=== PATIENT | female | born 1985 | race Caucasian/White ===

== ENCOUNTER 2017-02-07 22:40 | Emergency (ER) | payer MEDICAID ==
[~2017-02-07] VITALS: Ht 160 cm; Wt 49.8 kg
[2017-02-07] MEDS ORDERED: HYDROcodone/APAP 5/325 TABLET ONE (22:57)
[2017-02-07] MEDS ORDERED: HYDROcodone/APAP 5/325 TABLET PO ONE (23:00)
[2017-02-08 00:15] VITALS: BP 125/89
== END 2017-02-08 00:32 | disposition home or self-care (01) ==
LOC: ED 23:59
DX: S60.221A Contusion of right hand, initial encounter (principal); S60.031A Contusion of right middle finger without damage to nail, initial encounter; S60.041A Contusion of right ring finger without damage to nail, initial encounter; S60.051A Contusion of right little finger without damage to nail, initial encounter; W22.8XXA Striking against or struck by other objects, initial encounter; Y93.89 Activity, other specified; Y99.8 Other external cause status; Y92.009 Unspecified place in unspecified non-institutional (private) residence as the place of occurrence of the external cause
CPT/HCPCS: 99284

== ENCOUNTER 2017-08-15 12:43 | Emergency (ER) | payer MEDICAID ==
[~2017-08-15] VITALS: Ht 160 cm; Wt 52.0 kg
[2017-08-15] MEDS ORDERED: FAMOTIDINE 20 MG/2 ML IVPush ONE (13:30)
[2017-08-15] MEDS ORDERED: DEXAMETHASONE 4 MG/ML, 1ML IVPush ONE (13:30)
[2017-08-15] MEDS ORDERED: FAMOTIDINE 20 MG/2 ML ONE (13:37)
[2017-08-15] MEDS ORDERED: DEXAMETHASONE 4 MG/ML, 5ML ONE (13:37)
[2017-08-15 13:47] VITALS: BP 115/86
== END 2017-08-15 15:08 | disposition home or self-care (01) ==
LOC: ED 14:45
DX: L50.9 Urticaria, unspecified (principal); T78.1XXA Other adverse food reactions, not elsewhere classified, initial encounter; X58.XXXA Exposure to other specified factors, initial encounter
CPT/HCPCS: 96374; 96375; 99284; J1100; S0028

== ENCOUNTER 2018-05-27 01:57 | Inpatient (IN) | payer MEDICAID, OTHER ==
[~2018-05-27] VITALS: Ht 160 cm; Wt 61.3 kg
[2018-05-27 02:27] LABS: HCG UR SG 1.023 (1.003-1.030)
[2018-05-27 02:29] LABS: CULTURE INDICATED? YES; MICROSCOPIC INDICATED
[2018-05-27 02:50] LABS: BASOPHILS # (AUTO) 0.01 x10^3/uL (0-0.1); BASOPHILS % (AUTO) 0 % (0-1); EOSINOPHILS # (AUTO) 0.01 x10^3/uL (0-0.4); EOSINOPHILS % (AUTO) 0 % (1-7); LYMPHOCYTES # (AUTO) 0.97 x10^3/uL (1-3.4); LYMPHOCYTES % (AUTO) 7 % (22-44); MD NO; MEAN CORPUSCULAR HEMOGLOBIN 32.5 pg (27.0-34.8); MEAN CORPUSCULAR HGB CONC 34.5 g/dL (32.4-35.8); MEAN CORPUSCULAR VOLUME 94.1 fL (80-100); MEAN PLATELET VOLUME 9.6 fL (7.4-10.4); MONOCYTES # (AUTO) 1.31 x10^3/uL (0.2-0.8); MONOCYTES % (AUTO) 9 % (2-9); NEUTROPHILS # (AUTO) 11.69 x10^3/uL (1.8-6.8); NEUTROPHILS % (AUTO) 84 % (42-75); PLATELET COUNT 171 x10^3/uL (130-400); RED BLOOD COUNT 4.49 x10^6/uL (3.82-5.3); RED CELL DISTRIBUTION WIDTH 13.4 % (9.6-15.2)
[2018-05-27 03:01] LABS: ALANINE AMINOTRANSFERASE 24 U/L (12-78); ALBUMIN 3.1 g/dL (3.4-5.0); ANION GAP 11 mmol/L (5-15); CALCIUM 8.9 mg/dL (8.5-10.1); CHLORIDE 102 mmol/L (98-107); CREATININE 0.83 mg/dL (0.55-1.02)
[2018-05-27 03:04] LABS: ALKALINE PHOSPHATASE 68 U/L (45-117); TOTAL PROTEIN 7.9 g/dL (6.4-8.2)
[2018-05-27] MEDS ORDERED: CEFTRIAXONE PMX 1GM/50ML 50 ML ONE (03:19)
[2018-05-27] MEDS ORDERED: SODIUM CHLORIDE FLUSH 10ML SYR IVF ONE (03:30)
[2018-05-27] MEDS ORDERED: ONDANSETRON ODT 4 MG ONE (03:30)
[2018-05-27] MEDS ORDERED: SODIUM CHLORIDE 0.9% 1,000ML IVBOLUS ONE ×2 (03:30→04:30)
[2018-05-27] MEDS ORDERED: CEFTRIAXONE 1,000 MG in SODIUM CHLORIDE 0.9% 50 ML IV ONE (03:30)
[2018-05-27] MEDS ORDERED: ONDANSETRON ODT 4 MG PO ONE (04:00)
[2018-05-27] MEDS ORDERED: ACETAMINOPHEN 500 MG TABLET ONE (04:07)
[2018-05-27] MEDS ORDERED: KETOROLAC 30 MG/1 ML ONE (04:07)
[2018-05-27] MEDS: CEFTRIAXONE 1,000 MG in SODIUM CHLORIDE 0.9% 50 ML IV SCH (04:27)
[2018-05-27] MEDS ORDERED: morphine SULFATE 10 MG/ML, 1ML IVPush PRN (04:30)
[2018-05-27] MEDS ORDERED: ACETAMINOPHEN 500 MG TABLET PO ONE (04:30)
[2018-05-27] MEDS ORDERED: KETOROLAC 30 MG/1 ML IVPush ONE (04:30)
[2018-05-27] MEDS ORDERED: ONDANSETRON 2MG/ML, 2ML IVPush PRN (04:30)
[2018-05-27] MEDS ORDERED: ZOLPIDEM 5MG TABLET PO PRN (04:30)
[2018-05-27] MEDS ORDERED: PROMETHAZINE 25 MG/ML, 1ML IM PRN (04:30)
[2018-05-27] MEDS ORDERED: ENOXAPARIN 40 MG/0.4 ML ONE (04:36)
[2018-05-27] MEDS: SODIUM CHLORIDE 0.9% 1,000 ML IV SCH ×2 (04:41→13:38)
[2018-05-27] MEDS: ENOXAPARIN 40 MG/0.4 ML SQ SCH (04:41)
[2018-05-27 05:18] VITALS: BP 100/69
[2018-05-27 07:08] VITALS: BP 92/60
[2018-05-27 13:01] VITALS: BP 100/62
[2018-05-27] MEDS: ONDANSETRON ODT 4 MG PO PRN (15:27)
[2018-05-27] MEDS: KETOROLAC 30 MG/1 ML IV PRN (15:27)
[2018-05-27 20:00] VITALS: BP 89/55
[2018-05-28 00:02] VITALS: BP 106/71
[2018-05-28] MEDS: ACETAMINOPHEN 325 MG TABLET PO PRN ×2 (00:08→14:09)
[2018-05-28] MEDS: SODIUM CHLORIDE 0.9% 1,000 ML IV SCH ×3 (00:08→21:33)
[2018-05-28] MEDS: ONDANSETRON ODT 4 MG PO PRN ×3 (00:09→22:28)
[2018-05-28] MEDS: KETOROLAC 30 MG/1 ML IV PRN ×3 (00:09→22:28)
[2018-05-28] MEDS: ENOXAPARIN 40 MG/0.4 ML SQ SCH (04:30)
[2018-05-28] MEDS: CEFTRIAXONE 1,000 MG in SODIUM CHLORIDE 0.9% 50 ML IV SCH (04:53)
[2018-05-28 05:13] LABS: BASOPHILS # (AUTO) 0.03 x10^3/uL (0-0.1); BASOPHILS % (AUTO) 0 % (0-1); EOSINOPHILS # (AUTO) 0.01 x10^3/uL (0-0.4); EOSINOPHILS % (AUTO) 0 % (1-7); LYMPHOCYTES # (AUTO) 1.65 x10^3/uL (1-3.4); LYMPHOCYTES % (AUTO) 20 % (22-44); MD NO; MEAN CORPUSCULAR HEMOGLOBIN 32.3 pg (27.0-34.8); MEAN CORPUSCULAR HGB CONC 34.1 g/dL (32.4-35.8); MEAN CORPUSCULAR VOLUME 94.7 fL (80-100); MEAN PLATELET VOLUME 10.2 fL (7.4-10.4); MONOCYTES # (AUTO) 1.12 x10^3/uL (0.2-0.8); MONOCYTES % (AUTO) 14 % (2-9); NEUTROPHILS # (AUTO) 5.28 x10^3/uL (1.8-6.8); NEUTROPHILS % (AUTO) 65 % (42-75); PLATELET COUNT 147 x10^3/uL (130-400); RED BLOOD COUNT 3.55 x10^6/uL (3.82-5.3); RED CELL DISTRIBUTION WIDTH 13.4 % (9.6-15.2)
[2018-05-28 05:22] LABS: ANION GAP 7 mmol/L (5-15); CALCIUM 7.4 mg/dL (8.5-10.1); CHLORIDE 113 mmol/L (98-107); CREATININE 0.65 mg/dL (0.55-1.02)
[2018-05-28 07:06] VITALS: BP 94/64
[2018-05-28] MEDS ORDERED: OMNIPAQUE 350 MG/ML, 100ML BOTTLE ONE (08:21)
[2018-05-28 12:19] VITALS: BP_SYST 95; BP_SYST 96; BP_DIAS 60; BP_DIAS 62
[2018-05-28 19:00] VITALS: BP 94/61
[2018-05-29 01:59] VITALS: BP 93/62
[2018-05-29] MEDS: CEFTRIAXONE PMX 1GM/50ML 50 ML IV SCH (04:14)
[2018-05-29] MEDS: SODIUM CHLORIDE 0.9% 1,000 ML IV SCH ×2 (04:14→10:59)
[2018-05-29] MEDS: ENOXAPARIN 40 MG/0.4 ML SQ SCH (04:15)
[2018-05-29 04:56] LABS: BASOPHILS # (AUTO) 0.02 x10^3/uL (0-0.1); BASOPHILS % (AUTO) 0 % (0-1); EOSINOPHILS # (AUTO) 0.02 x10^3/uL (0-0.4); EOSINOPHILS % (AUTO) 0 % (1-7); LYMPHOCYTES # (AUTO) 2.08 x10^3/uL (1-3.4); LYMPHOCYTES % (AUTO) 31 % (22-44); MD NO; MEAN CORPUSCULAR HEMOGLOBIN 32.4 pg (27.0-34.8); MEAN CORPUSCULAR HGB CONC 34.1 g/dL (32.4-35.8); MEAN CORPUSCULAR VOLUME 95.2 fL (80-100); MEAN PLATELET VOLUME 9.8 fL (7.4-10.4); MONOCYTES # (AUTO) 0.97 x10^3/uL (0.2-0.8); MONOCYTES % (AUTO) 14 % (2-9); NEUTROPHILS # (AUTO) 3.72 x10^3/uL (1.8-6.8); NEUTROPHILS % (AUTO) 55 % (42-75); PLATELET COUNT 164 x10^3/uL (130-400); RED BLOOD COUNT 3.42 x10^6/uL (3.82-5.3); RED CELL DISTRIBUTION WIDTH 13.7 % (9.6-15.2)
[2018-05-29 05:09] LABS: ANION GAP 8 mmol/L (5-15); CALCIUM 7.5 mg/dL (8.5-10.1); CHLORIDE 112 mmol/L (98-107)
[2018-05-29 05:12] LABS: CREATININE 0.68 mg/dL (0.55-1.02)
[2018-05-29 07:43] VITALS: BP 105/70
[2018-05-29 13:27] VITALS: BP 105/69
[2018-05-29 19:18] VITALS: BP 112/76
[2018-05-30 01:50] VITALS: BP 110/75
[2018-05-30] MEDS: ENOXAPARIN 40 MG/0.4 ML SQ SCH (04:30)
[2018-05-30] MEDS: CEFTRIAXONE PMX 1GM/50ML 50 ML IV SCH (04:36)
[2018-05-30 07:51] VITALS: BP 107/74
[2018-05-30] MEDS ORDERED: CIPR500T3 PO (09:12)
== END 2018-05-30 11:40 | disposition home or self-care (01) | DRG 872 ==
LOC: ED 04:10 → EDIP 04:23 → 3NE 05:17
PROVIDERS: ADMIT Hospitalist; ATTEND Hospitalist
DX: A41.9 Sepsis, unspecified organism (principal); E87.1 Hypo-osmolality and hyponatremia; M48.56XA Collapsed vertebra, not elsewhere classified, lumbar region, initial encounter for fracture; N10 Acute pyelonephritis; R30.9 Painful micturition, unspecified; R35.0 Frequency of micturition; B96.20 Unspecified Escherichia coli [E. coli] as the cause of diseases classified elsewhere; E87.6 Hypokalemia; Z87.440 Personal history of urinary (tract) infections
CPT/HCPCS: 36415; 74177; 80048; 80053; 81001; 81025; 83605; 83735; 84100; 84145; 85025; 87040; 87077; 87086; 87186; 96365; 96375; 96376; G0378; J0696; J1650; J1885; Q0162; Q9967; J7030

== ENCOUNTER 2020-10-12 21:07 | Inpatient (IN) | payer MEDICAID ==
[~2020-10-12] VITALS: Ht 162.6 cm; Wt 61.0 kg
[~2020-10-12 21:07] MED LIST: CIPR500T4 PO
[2020-10-12] MEDS ORDERED: CEFAZOLIN 1,000 MG ONE (22:06)
[2020-10-12] MEDS ORDERED: OXYTOCIN 10 UNITS/ML, 1ML ONE (22:06)
[2020-10-12] MEDS ORDERED: ONDANSETRON 2MG/ML, 2ML ONE (22:06)
[2020-10-12] MEDS ORDERED: FENTANYL PF 100 MCG/2ML ONE (22:07)
[2020-10-12] MEDS ORDERED: HYDROmorphone 2 MG/ML, 1ML ONE (22:07)
[2020-10-12] MEDS ORDERED: KETOROLAC 30 MG/1 ML ONE (23:16)
[2020-10-12 23:24] LABS: BASOPHILS % (AUTO) 0 % (0-1); EOSINOPHILS % (AUTO) 0 % (1-7); LYMPHOCYTES % (AUTO) 9 % (22-44); MEAN CORPUSCULAR HEMOGLOBIN 30.3 pg (27.0-34.8); MEAN CORPUSCULAR HGB CONC 34.4 g/dL (32.4-35.8); MEAN PLATELET VOLUME 8.9 fL (7.4-10.4); MONOCYTES % (AUTO) 7 % (2-9); NEUTROPHILS % (AUTO) 83 % (42-75); PLATELET COUNT 129 x10^3/uL (130-400); RED BLOOD COUNT 2.25 x10^6/uL (3.82-5.3); RED CELL DISTRIBUTION WIDTH 12.8 % (9.6-15.2)
[2020-10-12] MEDS ORDERED: OXYTOCIN 30U/ 0.9% NaCL 500ML 500 ML ONE (23:27)
[2020-10-12 23:28] LABS: MD NO
[2020-10-12] MEDS ORDERED: ONDANSETRON 2MG/ML, 2ML IV PRN (23:30)
[2020-10-12] MEDS ORDERED: MISOPROSTOL 200 MCG TABLET PR PRN (23:30)
[2020-10-12] MEDS ORDERED: TRANEXAMIC ACID 1,000 MG in SODIUM CHLORIDE 0.9% 100 ML IVPB ONE (23:30)
[2020-10-12] MEDS ORDERED: OXYcodone IR 5MG TABLET PO PRN (23:30)
[2020-10-12] MEDS ORDERED: IBUPROFEN 800 MG TABLET PO PRN (23:30)
[2020-10-12] MEDS ORDERED: KETOROLAC 30 MG/1 ML IV SCH (23:30)
[2020-10-12] MEDS ORDERED: MORPHINE SULFATE 4 MG/ML, 1ML IVPush PRN (23:30)
[2020-10-12] MEDS ORDERED: morphine SULFATE 10 MG/ML, 1ML IM PRN (23:30)
[2020-10-12] MEDS ORDERED: CARBOPROST TROMETHAMINE 250 MCG/ML, 1ML IM PRN (23:30)
[2020-10-12] MEDS ORDERED: RHOGAM FROM BLOOD BANK 1 NOTE EA IM/IV ONE (23:30)
[2020-10-12] MEDS: LACTATED RINGERS 1,000 ML IV SCH (23:31)
[2020-10-12] MEDS: OXYTOCIN 30U/ 0.9% NaCL 500ML 500 ML IV SCH (23:32)
[2020-10-12 23:43] LABS: AMPHETAMINE SCREEN, URINE Positive (Negative); BARBITURATE SCREEN, URINE Negative (Negative); BENZODIAZEPINE SCREEN, URINE Negative (Negative); CANNABINOID SCREEN, URINE Negative (Negative); COCAINE SCREEN, URINE Negative (Negative); METHADONE SCREEN, URINE Negative (Negative); OPIATE SCREEN, URINE Negative (Negative)
[2020-10-12 23:57] LABS: INTERNATIONAL NORMALIZED RATIO 1.44 (0.93-1.1); PROTHROMBIN TIME 15.3 Seconds (9.6-11.5)
[2020-10-13] VITALS (11 sets, daily range): BP systolic 115–137; BP diastolic 72–84
[2020-10-13] MEDS ORDERED: FENTANYL PF 100 MCG/2ML ONE (00:03)
[2020-10-13] MEDS ORDERED: HYDROmorphone 2 MG/ML, 1ML IV PRN (01:30)
[2020-10-13] MEDS ORDERED: KETOROLAC 30 MG/1 ML IVPush PRN (01:30)
[2020-10-13] MEDS ORDERED: FENTANYL PF 100 MCG/2ML IVPush PRN (01:30)
[2020-10-13] MEDS ORDERED: ONDANSETRON 2MG/ML, 2ML IV PRN (01:30)
[2020-10-13] MEDS: LACTATED RINGERS 1,000 ML IV SCH ×4 (01:37→19:30)
[2020-10-13] MEDS ORDERED: OXYcodone 5 MG/5 ML ORAL.SOL UDC ONE ×4 (02:31→08:48)
[2020-10-13] MEDS: OXYcodone 5 MG/5 ML ORAL.SOL UDC PO PRN ×2 (02:37→08:54)
[2020-10-13 05:02] LABS: BASOPHILS % (AUTO) 0 % (0-1); EOSINOPHILS % (AUTO) 0 % (1-7); LYMPHOCYTES % (AUTO) 12 % (22-44); MEAN CORPUSCULAR HEMOGLOBIN 29.9 pg (27.0-34.8); MEAN CORPUSCULAR HGB CONC 34.4 g/dL (32.4-35.8); MEAN PLATELET VOLUME 8.6 fL (7.4-10.4); MONOCYTES % (AUTO) 9 % (2-9); NEUTROPHILS % (AUTO) 79 % (42-75); PLATELET COUNT 104 x10^3/uL (130-400); RED BLOOD COUNT 2.77 x10^6/uL (3.82-5.3); RED CELL DISTRIBUTION WIDTH 14.5 % (9.6-15.2)
[2020-10-13 05:06] LABS: MD NO
[2020-10-13] MEDS ORDERED: DOCUSATE 100 MG CAPSULE ONE (08:48)
[2020-10-13] MEDS: PRENATAL VIT/IRON/FA 1 EACH TABLET PO SCH (09:00)
[2020-10-13] MEDS: OXYTOCIN 30U/ 0.9% NaCL 500ML 500 ML IV SCH ×2 (09:30→19:30)
[2020-10-13 11:06] LABS: BASOPHILS % (AUTO) 1 % (0-1); EOSINOPHILS % (AUTO) 0 % (1-7); LYMPHOCYTES % (AUTO) 16 % (22-44); MEAN CORPUSCULAR HGB CONC 34.9 g/dL (32.4-35.8); MEAN PLATELET VOLUME 8.8 fL (7.4-10.4); MONOCYTES % (AUTO) 8 % (2-9); NEUTROPHILS % (AUTO) 76 % (42-75); PLATELET COUNT 94 x10^3/uL (130-400); RED BLOOD COUNT 2.48 x10^6/uL (3.82-5.3); RED CELL DISTRIBUTION WIDTH 14.8 % (9.6-15.2)
[2020-10-13 11:10] LABS: MD NO
[2020-10-13] MEDS ORDERED: MORPHINE SULFATE 4 MG/ML, 1ML ONE (11:51)
[2020-10-13] MEDS: OXYcodone IR 5MG TABLET PO PRN ×2 (15:48→19:54)
[2020-10-13 17:20] LABS: MEAN CORPUSCULAR HEMOGLOBIN 30.5 pg (27.0-34.8); MEAN CORPUSCULAR HGB CONC 35.6 g/dL (32.4-35.8); MEAN PLATELET VOLUME 9.5 fL (7.4-10.4); PLATELET COUNT 127 x10^3/uL (130-400); RED BLOOD COUNT 2.39 x10^6/uL (3.82-5.3); RED CELL DISTRIBUTION WIDTH 14.9 % (9.6-15.2)
[2020-10-13 17:53] LABS: INTERNATIONAL NORMALIZED RATIO 0.97 (0.93-1.1); PROTHROMBIN TIME 10.4 Seconds (9.6-11.5)
[2020-10-13] MEDS ORDERED: DIPHENHYDRAMINE 50 MG/ML, 1ML IVPush ONE (19:00)
[2020-10-13] MEDS ORDERED: ACETAMINOPHEN 325 MG TABLET PO ONE (19:00)
[2020-10-14 00:05] VITALS: BP 121/85
[2020-10-14 03:43] VITALS: BP 123/85
[2020-10-14] MEDS: OXYcodone IR 5MG TABLET PO PRN ×5 (04:02→23:22)
[2020-10-14] MEDS: OXYTOCIN 30U/ 0.9% NaCL 500ML 500 ML IV SCH ×2 (05:30→15:30)
[2020-10-14] MEDS: LACTATED RINGERS 1,000 ML IV SCH ×2 (05:30→15:30)
[2020-10-14 07:23] VITALS: BP 127/87
[2020-10-14] MEDS: DOCUSATE 100 MG CAPSULE PO PRN ×2 (08:04→23:22)
[2020-10-14] MEDS: SIMETHICONE 80 MG CHEW TAB PO PRN ×3 (08:04→23:22)
[2020-10-14] MEDS: PRENATAL VIT/IRON/FA 1 EACH TABLET PO SCH (08:07)
[2020-10-14 10:56] LABS: BASOPHILS % (AUTO) 1 % (0-1); EOSINOPHILS % (AUTO) 1 % (1-7); LYMPHOCYTES % (AUTO) 13 % (22-44); MEAN CORPUSCULAR HEMOGLOBIN 30.1 pg (27.0-34.8); MEAN CORPUSCULAR HGB CONC 35.1 g/dL (32.4-35.8); MEAN PLATELET VOLUME 9.3 fL (7.4-10.4); MONOCYTES % (AUTO) 7 % (2-9); NEUTROPHILS % (AUTO) 78 % (42-75); PLATELET COUNT 135 x10^3/uL (130-400); RED BLOOD COUNT 2.98 x10^6/uL (3.82-5.3); RED CELL DISTRIBUTION WIDTH 15.3 % (9.6-15.2)
[2020-10-14 11:07] LABS: INTERNATIONAL NORMALIZED RATIO 0.9 (0.93-1.1); PROTHROMBIN TIME 9.7 Seconds (9.6-11.5)
[2020-10-14 11:20] LABS: MD SCAN
[2020-10-14 13:00] VITALS: BP 125/87
[2020-10-14 15:30] VITALS: BP 129/81
[2020-10-14 19:45] VITALS: BP 132/88
[2020-10-15] MEDS: OXYTOCIN 30U/ 0.9% NaCL 500ML 500 ML IV SCH ×3 (01:30→21:30)
[2020-10-15] MEDS: LACTATED RINGERS 1,000 ML IV SCH ×3 (01:30→21:30)
[2020-10-15 04:37] VITALS: BP 129/90
[2020-10-15] MEDS: OXYcodone IR 5MG TABLET PO PRN ×4 (04:37→19:59)
[2020-10-15 05:36] LABS: BASOPHILS % (AUTO) 0 % (0-1); EOSINOPHILS % (AUTO) 2 % (1-7); LYMPHOCYTES % (AUTO) 12 % (22-44); MEAN CORPUSCULAR HEMOGLOBIN 30.3 pg (27.0-34.8); MEAN CORPUSCULAR HGB CONC 35.3 g/dL (32.4-35.8); MEAN PLATELET VOLUME 8.6 fL (7.4-10.4); MONOCYTES % (AUTO) 7 % (2-9); NEUTROPHILS % (AUTO) 79 % (42-75); PLATELET COUNT 164 x10^3/uL (130-400); RED BLOOD COUNT 2.85 x10^6/uL (3.82-5.3); RED CELL DISTRIBUTION WIDTH 15.3 % (9.6-15.2)
[2020-10-15 05:49] LABS: MD NO
[2020-10-15 07:05] VITALS: BP 134/94
[2020-10-15] MEDS: PRENATAL VIT/IRON/FA 1 EACH TABLET PO SCH (10:05)
[2020-10-15] MEDS: DOCUSATE 100 MG CAPSULE PO PRN ×2 (10:05→19:59)
[2020-10-15] MEDS: SIMETHICONE 80 MG CHEW TAB PO PRN ×2 (10:05→15:05)
[2020-10-15 20:00] VITALS: BP 118/77
[2020-10-16] MEDS: OXYcodone IR 5MG TABLET PO PRN ×6 (01:58→23:15)
[2020-10-16 07:05] VITALS: BP 133/91
[2020-10-16] MEDS: PRENATAL VIT/IRON/FA 1 EACH TABLET PO SCH (07:21)
[2020-10-16] MEDS: DOCUSATE 100 MG CAPSULE PO PRN ×2 (07:21→23:14)
[2020-10-16] MEDS: LACTATED RINGERS 1,000 ML IV SCH ×2 (07:30→17:30)
[2020-10-16] MEDS: OXYTOCIN 30U/ 0.9% NaCL 500ML 500 ML IV SCH ×2 (07:30→17:30)
[2020-10-16 20:00] VITALS: BP 136/90
[2020-10-16] MEDS: SIMETHICONE 80 MG CHEW TAB PO PRN (23:14)
[2020-10-17] MEDS: LACTATED RINGERS 1,000 ML IV SCH ×2 (01:27→13:30)
[2020-10-17] MEDS: OXYTOCIN 30U/ 0.9% NaCL 500ML 500 ML IV SCH ×2 (02:57→13:30)
[2020-10-17] MEDS: OXYcodone IR 5MG TABLET PO PRN ×3 (04:12→12:13)
[2020-10-17 07:30] VITALS: BP 132/90
[2020-10-17] MEDS: DOCUSATE 100 MG CAPSULE PO PRN (07:58)
[2020-10-17] MEDS: PRENATAL VIT/IRON/FA 1 EACH TABLET PO SCH (07:58)
[2020-10-17] MEDS ORDERED: DOCU-131 PO (09:05)
[2020-10-17] MEDS ORDERED: IBUP-1223 PO (09:05)
[2020-10-17] MEDS ORDERED: FERR325T18 PO (09:05)
[2020-10-17] MEDS ORDERED: OXYC1TAB14 PO (09:05)
== END 2020-10-17 15:40 | disposition home or self-care (01) | DRG 788 ==
LOC: LDOP 21:07 → LDIP 22:13 → 2NW 10-13 12:35
PROVIDERS: ADMIT Obstetrics & Gynecology; ATTEND Obstetrics & Gynecology
PROC: 10D00Z1 Extraction of Products of Conception, Low, Open Approach (ICD-10-PCS; principal; 2020-10-12)
PROC: 30233K1 Transfusion of Nonautologous Frozen Plasma into Peripheral Vein, Percutaneous Approach (ICD-10-PCS; 2020-10-13)
PROC: 30233N1 Transfusion of Nonautologous Red Blood Cells into Peripheral Vein, Percutaneous Approach (ICD-10-PCS; 2020-10-13)
DX: O99.334 Smoking (tobacco) complicating childbirth (principal); Z37.0 Single live birth; Z3A.34 34 weeks gestation of pregnancy; F17.210 Nicotine dependence, cigarettes, uncomplicated; O45.93 Premature separation of placenta, unspecified, third trimester; Z20.822 Contact with and (suspected) exposure to COVID-19; O77.9 Labor and delivery complicated by fetal stress, unspecified; O90.81 Anemia of the puerperium; D64.9 Anemia, unspecified
CPT/HCPCS: 36415; 80074; 80307; 85014; 85018; 85025; 85027; 85384; 85610; 85730; 86592; 86850; 86900; 86923; 87635; 87806; 88305; G0378; J0690; J1170; J1885; J2405; J3010; G0475; J1200; J2270; J2590; J7120; P9016; P9017

== ENCOUNTER 2021-04-16 23:08 | Emergency (ER) | payer MEDICAID ==
[~2021-04-16] VITALS: Ht 162.6 cm; Wt 48.8 kg
[~2021-04-16 23:08] MED LIST changes: +DOCU-131 PO; +FERR325T18 PO; +IBUP-1223 PO; +OXYC1TAB14 PO
[2021-04-16 23:30] VITALS: BP 111/84
[2021-04-17] MEDS ORDERED: DIPH,PERTUSS(ACELL),TET VAC/PF 0.5 ML IM-VACC ONE ×2 (00:27→00:30)
[2021-04-17] MEDS ORDERED: BACITRACIN ZINC OINT 500U/GM, 0.9 GM ONE (00:27)
== END 2021-04-17 00:45 | disposition home or self-care (01) ==
LOC: ED 23:40
DX: S56.911A Strain of unspecified muscles, fascia and tendons at forearm level, right arm, initial encounter (principal); S50.812A Abrasion of left forearm, initial encounter; F17.210 Nicotine dependence, cigarettes, uncomplicated; X58.XXXA Exposure to other specified factors, initial encounter; Y93.89 Activity, other specified; Y92.89 Other specified places as the place of occurrence of the external cause; Y99.8 Other external cause status
CPT/HCPCS: 29125; 90471; 90715; 99283